=== PATIENT | female | born 1965 | race American Indian/Alaskan Native ===

== ENCOUNTER 2020-08-21 05:03 | Emergency (ER) | payer MEDICAID, SELFPAY ==
[2020-08-21] VITALS (17 sets, daily range): BP systolic 115–155; BP diastolic 80–116; PULSE 92–126; RESP 14–27; TEMP 36.4; O2SAT 92–98
--- NOTE | 2020-08-21 05:11 | ED.OVERDOSE ---
HPI - Overdose General Chief Complaint: Overdose Stated Complaint: OD History of Present Illness HPI Narrative: Patient presents emergency department from home via EMS for overdose. Patient states she took a pill this evening and is unsure what it was she gone to her daughter's house and sat down and then become unconscious patient was given 2 mg of Narcan intranasally by EMS followed by 2 mg IV and has been awake and alert since that time patient denies any chest pain shortness of breath abdominal pain or any other symptoms Related Data Allergies Allergy/AdvReac Type Severity Reaction Status Date / Time No Known Allergies Allergy Verified 08/21/20 05:09 Review of Systems Review of Systems: Narrative: Gen.: Denies fevers or chills ENT: Denies congestion Respiratory: Denies shortness of breath or cough CV: Denies chest pain or palpitations GI: Denies abdominal pain nausea, emesis or diarrhea Musculoskeletal: Denies back pain or muscle pain Neuro: Denies numbness, tingling, weakness or focal weakness Skin: Denies rash Except as documented, all other systems reviewed and negative [facility] Past Medical History Medical History (Updated 08/21/20 @ 06:45 by Titi Ibrahim DO) Diabetes mellitus Social History Social History (Updated 08/21/20 @ 06:35 by Titi Ibrahim DO) Smoking status: Current every day smoker Exam Narrative: Exam Narrative: APPEARANCE: No acute distress, nontoxic, resting in bed EYES: EOMI HEENT: Normocephalic, atraumatic, OMM RESPIRATORY: No respiratory distress Clear to auscultation bilaterally with no rhonchi wheezing or rales. CARDIOVASCULAR: Regular rate and rhythm without murmurs rubs or gallops. ABDOMINAL: Soft, nontender, nondistended, no rebound or guarding MUSCULOSKELETAl: Moves all extremities. No clubbing, cyanosis or edema. NEURO: Awake and alert x 4. Following commands, speech normal, no focal deficits SKIN:: Warm, dry. No rashes lesions or abrasions PSYCHIATRIC: Normal affect/mood, Course Course Emergency Course: Patient has remained awake and alert x4 throughout stay in ED Discussed with patient results of workup and diagnosis. Discussed need for follow-up with primary care, proper use of medication, and reasons to return to the emergency department. Patient understands and agrees to current treatment plan Vital Signs Vital signs: Vital Signs Temperature 97.6 F 08/21/20 05:01 Pulse Rate 99 08/21/20 05:01 Respiratory Rate 20 08/21/20 05:01 Blood Pressure 155/94 H 08/21/20 05:01 Pulse Oximetry 94 08/21/20 05:01 Temperature 97.6 F 08/21/20 05:01 Pulse Rate 97 08/21/20 06:46 Respiratory Rate 15 08/21/20 06:46 Blood Pressure 123/81 08/21/20 06:45 Pulse Oximetry 96 08/21/20 06:46 MDM - Overdose ECG Data EKG #1: Interpretation: Sinus rhythm 97, [place] is normal, left axis deviation QTC is normal nonspecific ST changes inferior leads Discharge Plan Discharge Clinical Impression: Opioid overdose Patient Disposition: Home, Self-Care Condition: Stable Instructions: Antibiotic Form Additional Instructions: Do not use any further narcotics Follow-up/Referrals: PHYSICIAN,LOADING UNIT OPERATOR [Primary Care Provider] - Abdirahman Gomez MD [Physician] - (Follow-up in 1-2 days for further on-call physician treatment and evaluation)
--- NOTE | 2020-08-21 05:12 | ECG_ITS ---
Measurements Intervals [place] Rate: 97 P: 17 TN: 152 QRS: -33 QRSD: 110 T: 37 QT: 370 QTc: 471 Interpretive Statements SINUS RHYTHM LEFT AXIS DEVIATION DELAYED PRECORDIAL R/S TRANSITION BORDERLINE ECG Electronically Signed On 08-21-2020 7:47:57 CDT by Jack Berger D.O.
[2020-08-21] MEDS: ONDANSETRON INJ 4 MG/2 ML VIAL IV PUSH (05:32)
[2020-08-21 08:16] LABS: Glucose Point of Care 182 mg/dl (65-105)
== END 2020-08-21 08:17 | disposition home or self-care (01) ==
PROVIDERS: Emergency Provider Emergency Medicine
DX: T40.2X1A Poisoning by other opioids, accidental (unintentional), initial encounter (principal); E11.9 Type 2 diabetes mellitus without complications; F17.200 Nicotine dependence, unspecified, uncomplicated; R94.31 Abnormal electrocardiogram [ECG] [EKG]
CPT/HCPCS: 82948; 93005; 96374; 99284; J2405